=== PATIENT | male | born 1965 ===

== ENCOUNTER → 2017-10-18 | Outpatient (CLI) | payer OTHER ==
[2017-10-19 11:13] LABS: Microalbumin, Urine Quant. 15.7 mg/L (0.000-20.000); Protein, Urine Quantitative 12.7 mg/dL (0.0-11.9); Uric Acid, Urine 31.7 mg/dL (7.5-49.5)
[2017-10-19 11:24] LABS: Phosphorus, Urine 44.6 mg/dL (20.0-60.0)
[2017-10-19 11:36] LABS: Calcium, Urine 30.1 mg/dL (2.0-17.5); Calcium, Urine Calculation 391.3 mg/24hrs (42.0-353.0)
== END | disposition home or self-care (01) ==
LOC: LAB 08:46 → LAB SHORT 08:46
PROVIDERS: Internal Medicine Nephrology
DX: N18.1 Chronic kidney disease, stage 1 (principal); N25.81 Secondary hyperparathyroidism of renal origin; E55.9 Vitamin D deficiency, unspecified; E78.00 Pure hypercholesterolemia, unspecified; N20.0 Calculus of kidney; R76.9 Abnormal immunological finding in serum, unspecified; R94.5 Abnormal results of liver function studies; R94.6 Abnormal results of thyroid function studies; R73.09 Other abnormal glucose
CPT/HCPCS: 81050; 82043; 82340; 82570; 84105; 84133; 84156; 84300; 84560